=== PATIENT | male | born 1985 | race Caucasian/White ===

== ENCOUNTER 2025-01-07 09:46 | Outpatient (CLI) | payer BC ==
[2025-01-07 10:16] LABS: BASOPHILS # (AUTO) 0.1 X10'3 (0-0.2); BASOPHILS % (AUTO) 0.8 % (0-1); EOSINOPHILS # (AUTO) 0.2 X10'3 (0-0.9); EOSINOPHILS % (AUTO) 2.7 % (0-6); HEMATOCRIT 42.5 % (42.0-52.0); HEMOGLOBIN 14.7 g/dl (14.0-17.9); LYMPHOCYTES # (AUTO) 2.2 X10'3 (1.1-4.8); MEAN CORPUSCULAR HEMOGLOBIN 30.6 PG (27.0-31.0); MEAN CORPUSCULAR HGB CONC 34.7 g/dL (33.0-36.5); MEAN CORPUSCULAR VOLUME 88.3 FL (78-98); MEAN PLATELET VOLUME 6.7 FL (7.4-10.4); MONOCYTES # (AUTO) 0.6 X10'3 (0-0.9); MONOCYTES % (AUTO) 9.3 % (2-12); NEUTROPHILS # (AUTO) 3.6 X10'3 (1.8-7.7); NEUTROPHILS % (AUTO) 54.2 % (42-75); PLATELET COUNT 243 X10'3 (140-440); RED BLOOD COUNT 4.81 X10'6 (4.70-6.10); RED CELL DISTRIBUTION WIDTH 12.8 % (11.5-14.5); WHITE BLOOD COUNT 6.7 X10'3 (4.5-11.0)
[2025-01-07 10:28] LABS: HEMOGLOBIN A1C 4.8 % (4.5-6.2)
[2025-01-07 10:30] LABS: ALANINE AMINOTRANSFERASE 37 U/L (12-78); ALBUMIN 4.3 G/DL (3.4-5.0); ALBUMIN/GLOBULIN RATIO 1.4 (1.1-1.5); ALKALINE PHOSPHATASE 53 IU/L (46-116); ANION GAP 6 (8-16); ASPARTATE AMINO TRANSFERASE 18 U/L (10-37); BILIRUBIN,TOTAL 0.6 MG/DL (0.1-1.0); BLOOD UREA NITROGEN 17 MG/DL (7-18); BUN/CREATININE RATIO 18.7 (10.0-20.0); CALCIUM 8.8 MG/DL (8.5-10.1); CHLORIDE 104 MMOL/L (99-107); CHOL/HDL RATIO 2.4 (0.00-4.99); CHOLESTEROL 126 MG/DL (0-200); CREATININE 0.91 MG/DL (0.60-1.10); GLUCOSE 82 MG/DL (70-104); HDL CHOLESTEROL 52 MG/DL (35-60); LDL CHOLESTEROL 66 MG/DL (50-100); SODIUM 140 MMOL/L (135-145); TOTAL CARBON DIOXIDE 30.4 MMOL/L (24-32); TOTAL PROTEIN 7.4 G/DL (6.4-8.2); TRIGLYCERIDES 32 MG/DL (20-135); eGFR > 90 ML/MIN
[2025-01-07 10:35] LABS: BILIRUBIN,URINE NEGATIVE (Neg); CLARITY,URINE CLEAR (Clear); COLOR,URINE YELLOW (Yellow); GLUCOSE, URINE NEGATIVE (Neg); KETONES,URINE NEGATIVE (Neg); LEUKOCYTE ESTERASE ,URINE NEGATIVE (Neg); NITRITES, URINE NEGATIVE (Neg); OCCULT BLOOD,URINE NEGATIVE (Neg); PROTEIN,URINE NEGATIVE (Neg); UROBILINOGEN,URINE 0.2 E.U/dL (0.2-1.0)
[2025-01-07 10:39] LABS: UA COLLECTION TYPE NON-SPECIFIED
[2025-01-08 13:32] LABS: % FREE PSA 16.7 % (.); PROSTATE SPECIFIC AG, SERUM 0.6 ng/mL (0.0-4.0); PSA, FREE 0.1 ng/mL
== END 2025-01-07 23:59 | disposition home or self-care (01) ==
LOC: RAD 09:46
PROVIDERS: ATTEND Nurse Practitioner Family
DX: R35.0 Frequency of micturition (principal); Z13.0 Encounter for screening for diseases of the blood and blood-forming organs and certain disorders involving the immune mechanism; Z76.89 Persons encountering health services in other specified circumstances; Z13.220 Encounter for screening for lipoid disorders; Z13.1 Encounter for screening for diabetes mellitus
CPT/HCPCS: 36415; 80053; 80061; 81003; 83036; 84153; 84154; 85025

== ENCOUNTER 2025-02-11 08:10 | Emergency (ER) | payer BC ==
[~2025-02-11] VITALS: Ht 175.3 cm; Wt 93.0 kg
[2025-02-11] MEDS: LIDOcaine 1% W/epiNEPHrine 1:100,000 20ml vial IJ ONE (09:05)
[2025-02-11] MEDS ORDERED: ketorolac trometh 15mg/ml vial 15 MG/ML ML IV ONE (09:10)
[2025-02-11] MEDS: LORazepam 1 MG tablet PO ONE (09:37)
[2025-02-11] MEDS: oxyCODONE/APAP 10/325mg tablet PO ONE (09:37)
[2025-02-11] MEDS: ketorolac trometh 15mg/ml vial 15 MG/ML ML IM ONE (09:54)
[2025-02-11] MEDS ORDERED: HYDR25SU32 RC (10:35)
[2025-02-11] MEDS ORDERED: AMOX-580 PO (10:35)
[2025-02-11 11:05] VITALS: BP 121/84; PULSE 73; RESP 16; TEMP 98.5; O2SAT 97
== END 2025-02-11 11:02 | disposition home or self-care (01) ==
LOC: ER 08:11
DX: K64.5 Perianal venous thrombosis (principal); Z79.899 Other long term (current) drug therapy
CPT/HCPCS: 46083; 99284; J1885